=== PATIENT | female | born 1950 | race African-American/Black ===

== ENCOUNTER 2024-08-07 14:31 | Emergency (ER) | payer MEDICARE, OTHER ==
--- OUTSIDE RECORDS SUMMARY | 2024-08-07 14:35 | XMS REPORT | Continuity of Care Document ---
Author Name Unknown Address [address] [facility] [address] [place] [address] Organization [facility] Address [address] [facility] [address] [place] [address] Care Team Providers Care Director Of Public Health Name Role Phone Mariely Brown Attending Clinician [phone] Candice Garcia Attending Clinician Deavers_C Attending Clinician Unavailable Navdeep_Pasha Attending Clinician Unavailable Deavers_C Admitting Clinician Unavailable Navdeep_Pasha Admitting Clinician Unavailable Payers Payer Name Policy Type Policy Number Effective Date Expirati on Date Source [facility] [employer] (MEDICARE REPLACEMENT HMO) [id number] 2020 00:00:00 Medications Ordered Medication Name Filled Medication Name Start Date Stop Date Current Medication? Ordering Clinician Indication Dosage Frequency Signature (SIG) Comments Components Source amlodipine besylate 10 mg tablet amlodipine besylate 10 mg tablet Yes [facility] glimepiride 2 mg tablet glimepiride 2 mg tablet Yes [facility] doxazosin mesylate 2 mg tablet doxazosin mesylate 2 mg tablet Yes [facility] furosemide 40 mg tablet furosemide 40 mg tablet Yes [facility] ramipril 10 mg capsule ramipril 10 mg capsule Yes [facility] FARXIGA 5 MG TABLET FARXIGA 5 MG TABLET Yes [facility] carvedilol 25 mg tablet carvedilol 25 mg tablet Yes [facility] pravastatin sodium 20 mg tablet pravastatin sodium 20 mg tablet Yes [facility] metformin hcl 1000 mg tablet metformin hcl 1000 mg tablet Yes [facility] XARELTO 20 MG TABLET XARELTO 20 MG TABLET Yes [facility] amlodipine besylate 10 mg tablet amlodipine besylate 10 mg tablet Yes [facility] glimepiride 2 mg tablet glimepiride 2 mg tablet Yes [facility] doxazosin mesylate 2 mg tablet doxazosin mesylate 2 mg tablet Yes [facility] furosemide 40 mg tablet furosemide 40 mg tablet Yes [facility] ramipril 10 mg capsule ramipril 10 mg capsule Yes [facility] FARXIGA 5 MG TABLET FARXIGA 5 MG TABLET Yes [facility] carvedilol 25 mg tablet carvedilol 25 mg tablet Yes [facility] pravastatin sodium 20 mg tablet pravastatin sodium 20 mg tablet Yes [facility] metformin hcl 1000 mg tablet metformin hcl 1000 mg tablet Yes [facility] XARELTO 20 MG TABLET XARELTO 20 MG TABLET Yes [facility] Encounters Start Date/Time End Date/Time Encounter Type Admission Type Attending [facility] Care Facility Care Department Encounter ID Source 2024-03-03 13:00:00 2024-03-03 13:40:00 Cardiovas ular Risk Pharmacy Initial Assessment Mariely CORDOVA [id number] JRS [facility] 2024-02-16 08:30:00 2024-02-16 09:30:00 Annual D2Me Candice Garcia [id number] CLACXGWCCA ZCJ [facility] 2022-11-13 00:00:00 2022-11-13 00:00:00 Outpatient Deavers_C [facility] DMG [id number] [facility] 2022-11-13 00:00:00 2022-11-13 00:00:00 Outpatient Deavers_C [facility] DMG [id number] [facility] 2021-12-05 00:00:00 2021-12-05 00:00:00 Outpatient Williams_V [facility] DMG [id number] [facility] 2021-12-05 00:00:00 2021-12-05 00:00:00 Outpatient Williams_V [facility] DMG [id number] [facility] 2021-10-08 03:10:00 2021-10-08 03:10:00 Outpatient Williams_V DM[facility] DMG [id number] [facility] 2021-08-05 09:01:00 2021-08-05 09:01:00 Outpatient DMG DMG [id number] [facility] Notes Date/Time Note Provider Source 2024-03-03 13:00:00 Members Preferred Language Ukrainian [facility] Assessment Encounter Date: 2024-03-03 ### HISTORY OF PRESENT ILLNESS Patient is a 73 y/o female who is being followed up with for management of cholesterol by [facility]. Confirmed the following past medical history:Chronic Kidney DiseaseDiabetesHypertensionHyperli pidemia Medical History Notes/Other Conditions: - Type 2 diabetes mellitus - Hyperlipidemia - Atherosclerosis of hopi arteries - Pulmonary hypertension - Hypertensive heart and chronic kidney disease with heart failure - Paroxysmal atrial fibrillation - Peripheral vascular disease HISTORY OF PRESENT ILLNESS Hypertension: Yes Diabetes: Yes Chronic Kidney Disease: Yes Hyperlipidemia: Yes LABSGFR/1.73 sq M.predicted Creatinine-based formula (CKD-EPI 2020) (S/P/Bld) [Vol rate/Area] [26606-5]83 01/12/2024HbA1c (Bld) [Mass fraction] [4548-4]5.7% 01/12/2024lbumin/Creatinine (U) [Mass ratio] [9318-7]521 4AST [Catalytic activity/Vol] [1920-8]12 U/L 4ALT [Catalytic activity/Vol] [1742-6]9 U/L 4Cholesterol in HDL [Mass/Vol] [2085-9]33 mg/dL 2Cholesterol in LDL Calc [Mass/Vol] [67212-1]133 mg/dL (calc) 2Cholesterol [Mass/Vol] [2093-3]193 mg/dL 01/22/2022Triglyceride [Mass/Vol] [2571-8]148 mg/dL 01/22/2022 10 Year ASCVD Risk: N/A; Clinical ASCVD ASSESSMENT/PLAN Select the applicable scenario: Statin Initiation Liver Panel: Recent AST/ALT Status: Unremarkable Based on the patient's past medical history, compelling indications include: cardiovascular disease and diabetes diagnosis Pharmacists recommendation : Initiation of MODERATE or HIGH Intensity statin per ACC/AHA guidelines Patient should be placed on: Pravastatin Recommended Dose: 40mg Recommended Frequency: Once Daily The ACC 2021 update recommended high-intensity statin therapy with a target LDL cholesterol reduction of 50% from baseline and a goal of <55 mg/dL. This is regardless of diabetes status. PCP NOTE - COVER LETTER Follow up with PCP as needed or sooner if any concerns. Member verbalized understanding. All questions and concerns addressed. SCREENING: BREAST CANCER* First, are you being treated for breast cancer at this time?: No Second, have you had a bilateral or two unilateral masectomies in the past?: No Additional Notes: Member declining mammogram Mariely Brown [facility] 2024-02-16 08:30:00 ASSESSMENT SUMMARY SHAAN COLBERT is a 73 year old woman seen today by [facility] for a [facility]. Urgent Concerns- This member was seen today for a [facility] ([facility]) Comprehensive Assessment visit via telemedicine - Follow up with primary care and specialists as scheduled. Follow up with [facility] annually and as needed. - Member informed that Comprehensive Assessment Visit (CAV) is not a substitute for their Annual Wellness Visit (AWV) with their PCP. - Presented in a stable state and no acute distress at time of visit. Medication reconciliation performed. Patient Discussion ItemsThe patient does not recall and our records do not show evidence of the preventative services listed below. If your records do not show evidence of these services, please provide them to this patient. Due for mammogram and colorectal cancer screening. Ordered [facility] kit ordered thru [facility]; glucometer, test strips and lancets ordered. Additional Comments- Member verified for HIPAA compliance using Name, , and address. Member is physically located in the state of their confirmed physical address at the time of visit. Telemedicine consent obtained prior to visit. Visit PurposeThese visits are scheduled to augment PCPs to close care and documentation gaps, reconcile medications, help patients make full use of their [facility] benefits and educate patients about their conditions. This visit DOES NOT replace the your Annual Medicare Visit with the patient. The member was encouraged to schedule an AWV with their PCP to review our visit summary & recommendations. See below for teaching and instruction given regarding specific diagnoses. Member verbalized understanding to all. 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 No DISCUSSED: Educated the patient on the risks and benefits of the influenza vaccine Intake Notes: will try to get flu vaccine at pharmacy. MEDICATION RECONCILIATION Did you review the patient's prescription and non-prescription drugs, vitamins, herbal remedies, and other supplements, AND is the accompanying medication list documented in the medical record?: Yes GENERAL ASSESSMENT Feet: 5 Inches: 2 Pounds: 199 Patient BMI: 36.39 Notes for E66.01: - BMI 36.39 morbid obesity, dx with HTN, HLD, DM. Currently noted efforts of: regular activity and balanced diet. - Recommend increasing exercise regimen with silver sneakers/wellness benefits as tolerated - Educated on the benefits of maintaining healthy weight and wt loss. - Follow up by PCP.DISCUSSED: Dietary counseling was providedACTION: Advised the patient to discuss with their PCP a possible referral to a weight management program Morbid obesity confirmed on physical exam: Yes Dx: Z68.36 - Body mass index [BMI] 36.0-36.9, adult Notes for Z68.36: - BMI 36.39 morbid obesity, dx with HTN, HLD, DM. Currently noted efforts of: regular activity and balanced diet. - Recommend increasing exercise regimen with silver sneakers/wellness benefits as tolerated - Educated on the benefits of maintaining healthy weight and wt loss. - Follow up by PCP.DISCUSSED: Dietary counseling was providedACTION: Advised the patient to discuss with their PCP a possible referral to a weight management program Supplemental oxygen status: Room Air Supplemental Oxygen Needs: Does not need supplemental oxygen How would you rate your pain on average? (0 = No Pain, 10 = Worst Imaginable Pain): 3 Do you exercise regularly?: No Physical activity level during a typical week: due to pain ACTION: Counseled patient on health benefits of regular physical activity SCREENING - Fall Risk Have you fallen in the past year?: Yes Do you feel unsteady when standing or walking?: No Fall Risk Notes: slipped on damp floor, denies injury. SCREENING - DME & Home Health Does the patient use any durable medical equpiment?: No Does the patient use home health, physical therapy or retirement services?: No New orders, referrals, or any other assistance with DME or home health needed at this time?: No SCREENING: BREAST CANCER Are you being treated for breast cancer at this time?: No Has the patient undergone a bilateral or two unilateral mastectomies?: No Have you had a mammogram since February 21, 2022?: No DISCUSSED: Educated the patient on the importance of screening mammogram for early detection of breast cancer when there are usually no symptoms. Explained that [facility] can call the patient's PCP to help schedule a mammography exam. SHAAN COLBERT, can I have my [facility] clinical associate help you book the mammogram? They ll reach out to you to book it at a local imaging facility: No Please document member's plan to get mammography (or decline details): declined mammogram for now. SCREENING: COLORECTAL CANCER COLORECTAL STATUS: NO KNOWN CA Has the member had a recent colon cancer screening?: No Appropriate Screening Do you have a plan to get screened?: NO CRC SCREENING SUPPORT REQUESTED: Ordering In-Home Fit Kit DISCUSSED: Educated the patient on the risks and benefits of CRC screening Would the patient like to complete a FIT test?: Yes GENERAL REVIEW OF SYSTEMS Fevers: No Chest Pain or Pressure: No Shortness of Breath at Rest or with Exertion: No Lower Extremity Edema: Yes Palpitations: No Leg Pain / Cramps with Walking: No Wheezing: No Cough: No Changes in Stools: No Urination at Night: No Urinary Incontinence: No Genitourinary Symptoms Notes: urine frequency Easy Bruising: No Weakness: No Numbness: No Balance Problems: No Wounds / Sores That Don't Heal: No Joint Pain / Swelling: Yes MSK Symptoms Notes: leg pain Review of systems negative unless otherwise indicated above PHYSICAL EXAM Pedal edema: No Purpuric lesions on extremities: No Additional Notes: - Limited Physical Exam due to telehealth visit. CARDIOVASCULAR - Congestive Heart Failure Has the patient experienced any Heart Failure acute events in the last 12 months? (CHF Acute Event ED, observation, or inpatient stay): No Previously diagnosed with pulmonary hypertension?: Yes Signs or symptoms of an ACUTE EXACERBATION of chronic CHF?: No Dx: I27.20 - Pulmonary hypertension, unspecified Notes for I27.20: - Member with Pulmonary Hypertension. - Member without current complaints of ALTAMIRANO, SOB at rest, fatigue, dizziness, chest pain or pressure. Has occasional pedal edema. - No cyanosis present on CAV examination today. - Compliant with medications furosemide, carvedilol, denies side effects. - Continue follow up with PCP and staffing rn. 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 - Afib and other thrombophilia managed with xarelto, taking carvedilol. - Denies medication associated side effects. - Monitor for: Unexplained bleeding/bruising. Worsening palpitations or bradycardia. - Educated provided: Fall prevention discussed. Avoid throw rugs. Keep hallways well-lit. Change positions slowly. - Follow up with PCP and staffing rn as appropriate. - Pacemaker placed 2010, changed in 2016.DISCUSSED: The importance of anticoagulation for thrombus/embolism prevention in atrial fibrillation.ACTION: Confirm that the patient is prescribed an agent for rate or rhythm control. Dx: D68.69 - Other thrombophilia Notes for D68.69: - Member with Thrombophilia due to atrial fibrillation and taking xarelto, carvedilol. Pt with complaints of s/s: bruise easily - Counseled: strategies to reduce injury/fall risk; signs of spontaneous bleeding and when to seek further care. - Recommend PCP and staffing rn for follow up as scheduled. Discussed with the patient that the patient has a secondary hypercoagulable state caused by atrial fibrillation.: Yes Discussed with the patient the importance of anticoagulation for thrombus/embolism prevention: Yes CARDIOVASCULAR - Pacemaker Does patient have a cardiac pacemaker?: Yes Select indication for pacemaker: Other Dx: Z95.0 - Presence of cardiac pacemaker Notes for Z95.0: - Member has afib s/p pacemaker placement on 2010, changed in 2017. - Compliant with prescribed regimen of carvedilol for treatment of afib. - Denies fatigue, dizziness, lightheadedness, presyncope or chest discomfort. - Counseled on the importance of close follow up with device interrogations. - Recommended scheduling follow up with cardiology. 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 patient on follow up with staffing rn MEDICATION REFILLS Please confirm: Are any of the medications listed above within 30 days of their next fill date, or past due of their next fill date?: No STATIN USE IN PERSONS WITH DIABETES OR CARDIOVASCULAR DISEASE Statin status: Already on a statin regimen Statin refilled within last 90 days?: Yes Approxomiate date of statin refill: 2023-12-27 Select the intensity of the patient's statin therapy: Low ANTICOAGULATION Does patient CURRENTLY take anticoagulant medication?: Yes The patient has the following medical condition: Atrial fibrillation: Yes Dx: Z79. 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 - Currently taking anticoagulant secondary to Afib. Compliant with medication. - Monitor for: unexplained bleeding/bruising. - Report abnormal bleeding including: nosebleeds, bloody or black stools, or rectal bleeding, bloody or pink urine. - Advised to avoid injuries/trauma. Fall precautions advised. - Follow up with PCP and Agent Spa Desk as scheduled for management.DISCUSSED: That patient is compliant with the anticoagulant medicationDISCUSSED: Side effects including increased risk of bleeding RENAL - Chronic Kidney Disease Does patient carry a diagnosis of chronic kidney disease?: No Two basic metabolic panels by > 3 months showing an eGFR < 90?: No ENDOCRINE - Diabetes (A1c + Eye + Kidney) Patient most recently completed eye exam assessing for retinopathy?: 2022 Result of patient's most recent retinopathy exam: No retinopathy present Do you know the name of the eye doctor or clinic that performed the exam?: Yes Provider/Practice Details of Diabetic Retionopathy Exam: hub inventory specialist in [facility] source near [facility] ([address] [place] [address] Dr Garcia, [place] [address]) RHEUMATOID ARTHRITIS Previously recorded diagnosis of rheumatoid arthritis?: No Prescribed a disease-modifying antirheumatic drug (DMARD)?: No MORBID OBESITY Patient BMI: 36.39 The patient has a BMI of 36.39 as well as hypertension: Yes The patient has a BMI of 36.39 as well as hyperlipidemia: Yes Dx: E66.01 - Morbid (severe) obesity due to excess calories Notes for E610.22: - BMI 36.39 morbid obesity, dx with HTN, HLD, DM. Currently noted efforts of: regular activity and balanced diet. - Recommend increasing exercise regimen with silver sneakers/wellness benefits as tolerated - Educated on the benefits of maintaining healthy weight and wt loss. - Follow up by PCP.DISCUSSED: Dietary counseling was providedACTION: Advised the patient to discuss with their PCP a possible referral to a weight management program Morbid obesity confirmed on physical exam: Yes Dx: Z68.36 - Body mass index [BMI] 36.0-36.9, adult Notes for Z68.36: - BMI 36.39 morbid obesity, dx with HTN, HLD, DM. Currently noted efforts of: regular activity and balanced diet. - Recommend increasing exercise regimen with silver sneakers/wellness benefits as tolerated - Educated on the benefits of maintaining healthy weight and wt loss. - Follow up by PCP.DISCUSSED: Dietary counseling was providedACTION: Advised the patient to discuss with their PCP a possible referral to a weight management program COMMON DIAGNOSES The patient has a diagnosis of hyperlipidemia: Yes The patient has a diagnosis of hypertension: Yes Statin status: Already on a statin regimen Dx: E78.5 - Hyperlipidemia, unspecified Notes for E78.5: - Most recent labs: Total chol 193 ; LDL 133 ; HDL 33 ;Trig 148 on 01/22/2022. - HLD treated with: pravastatin. Denies medication associated side effects. - Encouraged low fat diet, exercise regimen, take medications as prescribed. - Followed by PCP.DISCUSSED: Educated patient on etiology and natural history of hyperlipidemiaDISCUSSED: Educated patient on lifestyle modifications such as diet and exercise to improve lipid levelsDISCUSSED: Educated patient on importance of medication adherence to improve lipid levelsACTION: Confirmed that patient's lipid levels are being monitored by PCP In addition to hypertension, the patient has the following condition(s): CHF + CKD Stage 1-4 Dx: I13.0 - Hypertensive heart and chronic kidney disease with heart failure and stage 1 through stage 4 chronic kidney disease, or unspecified chronic kidney disease Notes for I13.0: - Hypertension with CKD and HF. - Hypertension Controlled, treated with: ramipril, amlodipine, carvedilol. - CKD treated with: ramipril; Most recent GFR: 83 on 01/12/2024. - HF treated with: furosemide. - Denies medication associated side effects. - Denies symptoms of SHAH, CP, dizziness, visual changes, SOB, dyspnea, orthopnea. c/o occasional LE edema. - Counseled on the importance of low sodium diet and increased exercise regimen as tolerated. - Recommend maintenance of BP log for medical visits. - Monitor daily weights and maintain weight log. Provide weight log to providers during appointments. - Discussed self-monitoring for orthopnea, dyspnea, edema, weight gain, sodium intake limitation/reduction, avoid NSAIDs/PPI. - Follow up with PCP and staffing rn as scheduled.DISCUSSED: Educated patient on etiology and natural history of hypertensionDISCUSSED: Educated patient on lifestyle modifications such as diet and exercise to improve blood pressureDISCUSSED: Educated patient on importance of medication adherence for blood pressure control ADDITIONAL MEDICAL HISTORY Condition: DM II Condition Stability: Stable Medication Adherence: Taking medication as prescribed Medication Regimen Recommendations: No changes recommended Follows with (provider): PCP Additional Notes-: - member does not have glucometer, order sent. APPOINTMENT CPT CODE* Please indicate how this visit was conducted: Video Please select the video platform used during the visit: [facility] iPad Please record the total amount of time you spent on this patient visit- Total time includes time spent on preparation, speaking with the patient, documentation, and post-visit coordination of care - This is limited to time spent ON THE DATE OF SERVICE (e.g. does not include time spent on days prior to or after the date of service) 40 - 59 minutes [facility]
[2024-08-07 15:25] LABS: Absolute Eosinophils 0.3 K/uL (0-0.5); Absolute Lymphocytes (CBC) 1.2 K/uL (0.7-4.9); Absolute Monocytes 0.6 K/uL (0.1-1.3); Absolute Neutrophil 6.1 K/uL (1.8-8.0); Basophils % 0.6 % (0-1.3); Eosinophils % 3.5 % (0-4.4); Hematocrit 37.1 % (36.0-45.0); MCH 31.9 pg (27.0-35.0); MCHC 32.5 g/dL (32.0-36.0); MCV 98.2 fL (80-100); MPV 7.7 fL (7.6-11.3); Monocytes % 7.3 % (3.3-12.3); Neutrophils % 73.6 % (41.7-73.7); Nucleated Red Blood Cells % 0.1 % (0-0); Platelets 331 thou/uL (152-406); RBC Red Blood Cell Count 3.78 M/uL (3.86-4.86); Red Cell Distribution Width 14.7 % (12.1-15.2)
[2024-08-07 15:26] LABS: PT Prothrombin Time 18.5 SECONDS (10-13.0); Protime INR 1.66
--- NOTE | 2024-08-07 15:27 | RAD REPORT ---
EXAM: Chest Single View HISTORY: 74 years Female DYSPNEA COMPARISON: 11/02/2016 FINDINGS: LUNGS/PLEURA: Pulmonary vascular congestion. No [place] pulmonary edema. CARDIAC/MEDIASTINUM: Mild cardiomegaly UPPER ABDOMEN: No significant abnormality. BONES: No acute abnormality. LINES/TUBES/OTHER: Pacemaker present. IMPRESSION: Pulmonary vascular congestion. No alveolar edema or consolidative airspace disease.
[2024-08-07 15:40] LABS: Albumin/Globulin Ratio 0.7 (1.1-1.8); Alkaline Phosphatase 61 U/L (45-117); BUN Blood Urea Nitrogen 12 mg/dL (7-18); Bicarbonate 32 mEq/L (21-32); Bilirubin Direct 0.2 mg/dL (0-0.2); Bilirubin Indirect, Calculated 0.3 mg/dL (0.2-0.8); Bilirubin Total 0.5 mg/dL (0.2-1.0); Globulin 4.1 g/dL (2.3-3.5); Glomerular Filtration Rate 72 ml/min (=/>90); Glucose Level 207 mg/dL (74-106); Magnesium 1.7 mg/dL (1.6-2.4); NT PRO-BNP 636 pg/mL (<450); Protein, Total 7.1 g/dL (6.4-8.2); Sodium Level 140 mEq/L (136-145); Troponin High Sensitivity 9.3 pg/mL (<58.9)
[2024-08-07 15:44] LABS: ALT/SGPT < 14 U/L (13-56); AST/SGOT < 10 U/L (15-37)
[2024-08-07] MEDS ORDERED: FUROSEMIDE 20 MG/ 2ML VIAL ONE (16:05)
--- NOTE | 2024-08-07 16:10 | EDPHYS ---
Physician Documentation [facility] Name: Sharron Sloan Age: 74 yrs Sex: Female : 1950 Arrival Date: 08/07/2024 Time: 14:31 Bed 25 Private MD: ED Physician Anu Vera HPI: 08/07 16:02 This 74 yrs old Black Female presents to ER via Ambulatory with complaints of Shortness sp3 Of Breath, Fatigue. 16:02 74-year-old female with a history of diabetes, CHF, hypertension presents to the ED sp3 with bilateral swollen feet and dyspnea on exertion off and on for the last 2 weeks. She went to see her PCP today who diverted her to the ED for further evaluation. Patient denies having any chest pain, chest tightness, back pain, jaw pain, left arm pain, or any other anginal equivalents. She also denies headache, neck pain, abdominal pain, nausea, vomiting, diarrhea, fever, cough, congestion, syncope, near syncope, focal neurological deficit, travel history, prolonged immobilization, known sick contacts, or any other signs or symptoms on ROS at this time. She does state that she is compliant on her medications when asked and states that she takes "furosemide once a day" but does not know the dose.. 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 - Social history:: Smoking status: Patient denies any tobacco usage or history of. ROS: 16:03 Constitutional: Negative for fever, chills, and weight loss, Eyes: Negative for injury, sp3 pain, redness, and discharge, Neck: Negative for injury, pain, and swelling, Cardiovascular: Negative for chest pain, palpitations, and edema, Abdomen/GI: Negative for abdominal pain, nausea, vomiting, diarrhea, and constipation, Back: Negative for injury and pain, : Negative for injury, bleeding, discharge, and swelling, Skin: Negative for injury, rash, and discoloration, Neuro: Negative for headache, weakness, numbness, tingling, and seizure, Psych: Negative for depression, anxiety, suicide ideation, homicidal ideation, and hallucinations, Allergy/Immunology: Negative for hives, rash, and allergies, Endocrine: Negative for neck swelling, polydipsia, polyuria, polyphagia, and marked weight changes, Hematologic/Lymphatic: Negative for swollen nodes, abnormal bleeding, and unusual bruising, 16:03 All other systems are negative, Exam: 16:04 Constitutional: This is a well developed, well nourished patient who is awake, alert, sp3 and in no acute distress. Head/Face: Normocephalic, atraumatic. Eyes: Pupils equal round and reactive to light, extra-ocular motions intact. Lids and lashes normal. Conjunctiva and sclera are non-icteric and not injected. Cornea within normal limits. Periorbital areas with no swelling, redness, or edema. ENT: Nares patent. No nasal discharge, no septal abnormalities noted. External auditory canals are clear. Oropharynx with no redness, swelling, or masses, exudates, or evidence of obstruction, uvula midline. Mucous membranes moist. Neck: Trachea midline, no thyromegaly or masses palpated, and no cervical lymphadenopathy. Supple, full range of motion without nuchal rigidity, or vertebral point tenderness. No Meningismus. Chest/axilla: Normal chest wall appearance and motion. Nontender with no deformity. No lesions are appreciated. Cardiovascular: Regular rate and rhythm with a normal S1 and S2. No gallops, murmurs, or rubs. Normal PMI, no JVD. No pulse deficits. Respiratory: Lungs have equal breath sounds bilaterally, clear to auscultation and percussion. No rales, rhonchi or wheezes noted. No increased work of breathing, no retractions or nasal flaring. Abdomen/GI: Soft, non-tender, with normal bowel sounds. No distension or tympany. No guarding or rebound. No evidence of tenderness throughout. Back: No spinal tenderness. No costovertebral tenderness. Full range of motion. Skin: Warm, dry with normal turgor. Normal color with no rashes, no lesions, and no evidence of cellulitis. Neuro: Awake and alert, GCS 15, oriented to person, place, time, and situation. Cranial nerves II-XII grossly intact. Motor strength 5/5 in all extremities. Sensory grossly intact. Cerebellar exam normal. Normal gait. Psych: Awake, alert, with orientation to person, place and time. Behavior, mood, and affect are within normal limits. 16:04 Musculoskeletal/extremity: Mild 1+ to 2+ pedal edema bilaterally. No rales noted on lung exam.. 16:10 ECG was reviewed by the Attending Physician. EKG demonstrates paced rhythm at 64 bpm sp3 Vital Signs: 14:50 BP 181 / 61; Pulse 63; Resp 18; Temp 98.5; Pulse Ox 94% on R/A; Weight 91.17 kg; Height ll1 5 ft. 1 in. ; Pain 0/10; 16:22 BP 151 / 59; Pulse 68; Resp 13; Pulse Ox 94% on R/A; jb4 14:50 Body Mass Index 37.98 (91.17 kg, 154.94 cm) ll1 14:50 Pain Scale: Adult ll1 MDM: 14:41 Medical Screening Exam initiated sp3 16:07 Data reviewed: vital signs, nurses notes, lab test result(s), EKG, radiologic studies. sp3 ED course: 74-year-old female with dyspnea on exertion and pedal edema bilaterally. Differential diagnosis includes volume overload, CHF, ACS, among others. I am not highly suspicious of sepsis, shock, pneumonia, viral illness or any other critical process. Chest x-ray is clear and workup demonstrates no significant abnormalities. BNP at 686. I believe patient has peripheral edema and we will give an extra boost of Lasix 20 mg IV and patient can continue her home dose. Follow-up with her PCP next week. I have advised patient return for any worsening symptoms, chest pain or any other concerns she may have. Patient acknowledges and is grateful for her care.. 08/07 14:42 Order name: Basic Metabolic Panel; Complete Time: 15:44 3 08/07 14:42 Order name: CBC with Diff; Complete Time: 15:44 [facility] 08/07 14:42 Order name: LFT's; Complete Time: 15:44 3 08/07 14:42 Order name: Magnesium; Complete Time: 15:44 3 08/07 14:42 Order name: NT PRO-BNP; Complete Time: 15:44 3 08/07 14:42 Order name: PT-INR; Complete Time: 15:29 3 08/07 14:42 Order name: Troponin HS; Complete Time: 15:44 3 08/07 14:42 Order name: XRAY Chest (1 view); Complete Time: 15:29 sp3 08/07 14:42 Order name: Cardiac monitoring; Complete Time: 15:58 sp3 08/07 14:42 Order name: EKG - Nurse/Tech; Complete Time: 15:58 sp3 08/07 14:42 Order name: IV Saline Lock; Complete Time: 15:45 sp3 08/07 14:42 Order name: Labs collected and sent; Complete Time: 15:45 sp3 08/07 14:42 Order name: O2 Per Protocol; Complete Time: 15:45 sp3 08/07 14:42 Order name: O2 Sat Monitoring; Complete Time: 15:45 sp3 Administered Medications: 16:07 Drug: Furosemide IVP 20 mg IVP once; give over 2 minutes Route: IVP; Site: left jb4 antecubital; 16:30 Follow up: Response: No adverse reaction jb4 Disposition Summary: 08/07/24 16:10 Discharge Ordered Notes: Location: Home sp3 Condition: Stable sp3 Diagnosis - Peripheral edema, CHF mild sp3 Followup: sp3 - With: Private Physician - When: Upon discharge from the Emergency Department - Reason: Recheck today's complaints, Continuance of care Discharge Instructions: - Discharge Summary Sheet sp3 - Peripheral Edema sp3 Forms: - Medication Reconciliation Form sp3 - Antibiotic Education sp3 - Prescription Opioid Use sp3 - Patient Portal Instructions sp3 - Leadership Thank You Letter sp3 Signatures: Dispatcher [employer] EDBuffy Amos RN RN ss Rayray Nuñez RN RN jb4 Eula Giron RN RN ll1 Anu Vera MD MD sp3 Corrections: (The following items were deleted from the chart) 14:42 14:42 Chest Single View+RAD.[email or web address] ordered. EDMS EDMS
--- NOTE | 2024-08-07 16:10 | ER ---
Nurse's Notes [facility] Name: Sharron Sloan Age: 74 yrs Sex: Female : 1950 Arrival Date: 08/07/2024 Time: 14:31 Bed 25 Private MD: Diagnosis: Peripheral edema, CHF mild Presentation: 08/07 14:50 Chief complaint: Patient states: SOB with exertion and fatigued easily for over 2 ll1 weeks. Eating/drinking well. No fever. Coronavirus screen: Client denies travel out of the [place] in the last 14 days. At this time, the client does not indicate any symptoms associated with coronavirus-19. Ebola Screen: Patient denies travel to an Ebola-affected area in the 21 days before illness onset. Initial Sepsis Screen: Does the patient meet any 2 criteria? No. Patient's initial sepsis screen is negative. Does the patient have a suspected source of infection? No. Patient's initial sepsis screen is negative. Risk Assessment: Do you want to hurt yourself or someone else? Patient reports no desire to harm self or others. Onset of symptoms was July 22, 2024. 14:50 Method Of Arrival: Ambulatory ll1 14:50 Acuity: [place] 2 ll1 Triage Assessment: 14:50 General: Appears in no apparent distress. Behavior is calm, cooperative, appropriate ll1 for age, Reports fatigue for. Pain: Denies pain. Respiratory: Reports shortness of breath Onset: The symptoms/episode began/occurred yesterday, the patient has moderate shortness of breath. 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 - Social history:: Smoking status: Patient denies any tobacco usage or history of. Screenin:22 [facility] ED Fall Risk Assessment (Adult) History of falling in the last 3 months, jb4 including since admission No falls in past 3 months (0 pts) Confusion or Disorientation No (0 pts) Intoxicated or Sedated No (0 pts) Impaired Gait No (0 pts) Mobility Assist Device Used No (0 pt) Altered Elimination No (0 pt) Score/Fall Risk Level 0 - 2 = Low Risk Oriented to surroundings, Maintained a safe environment. Abuse screen: Denies threats or abuse. Nutritional screening: No deficits noted. Tuberculosis screening: No symptoms or risk factors identified. Assessment: 15:48 Reassessment: No changes from previously documented assessment. Patient and/or family ll1 updated on plan of care and expected duration. Pain level reassessed. Vital Signs: 14:50 BP 181 / 61; Pulse 63; Resp 18; Temp 98.5; Pulse Ox 94% on R/A; Weight 91.17 kg; Height ll1 5 ft. 1 in. ; Pain 0/10; 16:22 BP 151 / 59; Pulse 68; Resp 13; Pulse Ox 94% on R/A; jb4 14:50 Body Mass Index 37.98 (91.17 kg, 154.94 cm) ll1 14:50 Pain Scale: Adult ll1 ED Course: 14:35 Patient arrived in ED. cj3 14:38 Arm band placed on. ss 14:41 Anu Vera MD is Attending Physician. sp3 14:52 Triage completed. ll1 15:15 XRAY Chest (1 view) In Process Unspecified. EDMS 15:48 Patient placed in an exam room, on a stretcher. ll1 15:58 Rayray Nuñez, BELLA is Primary Nurse. jb4 16:22 Patient has correct armband on for positive identification. Bed in low position. Call jb4 light in reach. Side rails up X 1. Provided Education on: discharge instructions.. 16:22 No provider procedures requiring assistance completed. IV discontinued, intact, jb4 bleeding controlled, No redness/swelling at site. Pressure dressing applied. Administered Medications: 16:07 Drug: Furosemide IVP 20 mg IVP once; give over 2 minutes Route: IVP; Site: left jb4 antecubital; 16:30 Follow up: Response: No adverse reaction jb4 Medication: 16:22 VIS not applicable for this client. jb4 Outcome: 16:10 Discharge ordered by . sp3 16:22 [facility]. jb4 16:22 Condition: stable 16:22 Discharge instructions given to patient, Instructed on discharge instructions, follow up and referral plans. Demonstrated understanding of instructions, follow-up care, 16:30 Patient left the ED. jb4 Signatures: Dispatcher [employer] Buffy Gilman, RN RN ss Rayray Nuñez RN RN jb4 Eula Giron RN RN ll1 Anu Vera MD MD sp3 Galina Carlos cj3
[2024-08-07 16:57] VITALS: TEMP 98.5; O2SAT 94
[2024-08-07 17:02] VITALS: BP 151/59
--- NOTE | 2024-08-09 12:36 | EKG ---
Test Date: 2024-08-07 Test Time: 15:05:34 Aviation Manager: SARAH MEASUREMENT RESULTS: Intervals: Rate: 64 VT: 176 QRSD: 150 QT: 458 QTc: 472 [place]: P: 31 VT: 176 QRS: -75 T: 109 INTERPRETIVE STATEMENTS: Atrial-sensed ventricular-paced rhythm Abnormal ECG Compared to ECG 11/02/2016 10:34:24 AV dual-paced complex(es) or rhythm no longer present Prolonged QT interval no longer present Electronically Signed On 08-09-24 12:27:04 CDT by Fernando Hernandez
== END 2024-08-07 16:30 | disposition home or self-care (01) ==
LOC: ER 14:31
DX: I50.9 Heart failure, unspecified (principal); I10 Essential (primary) hypertension; Z95.0 Presence of cardiac pacemaker
CPT/HCPCS: 93005; 85025; 80048; 36415; 83735; 85610; 80076; 84484; 83880; 71045; 96374; 99284; J1940